=== PATIENT | female | born 1975 | race Caucasian/White ===

== ENCOUNTER 2016-11-17 18:32 | Emergency (ER) | payer OTHER ==
[~2016-11-17 18:32] MED LIST: ALBU17IN INH; ALLO100T PO; BACT800T5 PO; BENA25CA2 PO; CLON0.5T PO; INSUHUMDS SC; INSULADS SC; INSULANT SC; KEPP1TAB2 PO; LAMI25TA PO; ONDA4TAB6 PO; OXYC-517 PO; PROP1TAB29 PO; VITA50003 PO; ZANA4TAB PO; ZOFR20TA PO; ZYRT1TAB PO; ZYVO100T PO
[2016-11-17] MEDS ORDERED: NORCO, ANEXSIA 5/325MG TABLET (HYDROcodone/ACETAMINOPHEN) As Ordered ONE (18:48)
--- NOTE | 2016-11-17 19:05 | REP ---
Clinical: Trauma. Technique: AP, lateral, bilateral oblique views left wrist. Findings: The carpal bones, surrounding osseous structures, soft tissues, and joint spaces are normal. There is no evidence for acute fracture or dislocation. No subcutaneous emphysema or radiodense foreign body. Impression: Normal wrist series. No acute fracture or dislocation Signed by Rudy Oswald MD 11/17/2016 06:56 P
--- NOTE | 2016-11-17 19:29 | EDDOCDS ---
Nurse's Notes [facility] Name: Lolita Meraz Age: 40 yrs Sex: Female : 1975 Arrival Date: 11/17/2016 Time: 18:32 Bed TR8 Private MD: Jp Vanegas MD Diagnosis: Other specified sprain of left wrist Presentation: 11/17 18:35 Presenting complaint: Patient states: fell while running and injured left wrist. moves srm fingers well. Adult Sepsis Screening: The patient does not have new or worsening altered mentation. Patient's respiratory rate is less than 22. Systolic blood pressure is greater than 100. Patient has a qSOFA score of 0- Negative Sepsis Screen. Suicide/Homicide risk assessment- the patient denies having any suicidal and/or homicidal ideations and does not present with any other emotional, behavioral or mental health complaints. Status: Patient is not a counseling services manager or dependent. Transition of care: patient was not received from another setting of care. 18:35 Acuity: KWABENA Level 4 srm 18:35 Method Of Arrival: Walkin/Carried/Asstd [facility] Triage Assessment: 18:37 General: Appears in no apparent distress, Behavior is appropriate for age, cooperative. srm Pain: Pain currently is 7 out of 10 on a pain scale. HIV screening NA for this visit Offered previously. Musculoskeletal: Reports left wrist. 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 Keppra 1,000 mg Oral tab 2 tab every 12 hours - PMHx: blood clot in left upper arm; breast cancer; Crohn's; Diabetes - IDDM: controlled; Ovarian cyst; Pancreatitis; Seizure Disorder; uterine problems; sepsis; - PSHx: Neck fusion; Right shoulder surgery 2011; Arthroscopic bilateral knee; Cholecystectomy; Appendectomy; tumor removed from stomach; - Social history: Smoking status: Patient uses tobacco products, current every day smoker. No barriers to communication noted, The patient speaks fluent Vincentian, Speaks appropriately for age. - Family history: Not pertinent. - : The pt / caregiver states he / she is not on anticoagulants. Home medication list is obtained from the patient. - Exposure Risk Screening:: None identified. Screenin:20 Screening information is obtained from the patient. Fall risk: No risks identified. jo3 Assistance ADL's: requires no assistance with activities of daily living. Abuse/DV Screen: The patient / caregiver reports he/she is: not in a situation that causes fear, pain or injury. Nutritional screening: No deficits noted. Advance Directives: There is no active DNR order. home support is adequate. Assessment: 19:20 General: Appears in no apparent distress, comfortable, Behavior is appropriate for age, jo3 cooperative, pleasant. Neurological: Level of Consciousness is awake, alert, Oriented to person, place, time. Cardiovascular: No deficits noted. Respiratory: Airway is patent Respiratory effort is even, unlabored. Derm: Skin is pink, warm & dry. Musculoskeletal: Splint in place to left forearm. Good CSM noted. Vital Signs: 18:34 BP 151 / 88; Pulse 82; Resp 18; Temp 98.6(T); Pulse Ox 100% on R/A; Weight 110.68 kg; dem1 Height 5 ft. 9 in. (175.26 cm); Pain 7/10; 19:11 BP 148 / 90; Pulse 76; Resp 18; Pulse Ox 100% on R/A; Pain 6/10; jb5 18:34 Body Mass Index 36.03 (110.68 kg, 175.26 cm) [facility] Vitals: 18:34 Log In Time: November 17, 2016 at 18:26. [facility] ED Course: 18:32 Patient visited by Brady Plaza. dem1 18:32 Jp Vanegas is Private Physician. dem1 18:32 Patient moved to Waiting dem1 18:35 Patient moved to Pre RCE dem1 18:36 Triage Initiated srm 18:38 Patient moved to Triage 1 srm 18:39 Brennon Pabon PA is PHCP. mo1 18:39 Burke Perales MD is Attending Physician. mo1 18:44 Patient visited by Brennon Pabon PA. mo1 18:51 Patient moved to TR1 srm 18:51 Patient moved to Radiology srm 18:52 Patient moved to TR1 bar 19:01 Patient moved to PR1 / 25 jb5 19:04 Jp Vanegas is Referral Physician. mo1 19:12 Patient visited by Sierra Zapata PCA. jb5 19:19 Patient moved to TR8 jo3 19:20 The patient / caregiver is instructed regarding the plan of care and ED course. jo3 19:20 No IV's were initiated during this patient's visit. No procedures done that require jo3 assistance. Administered Medications: 18:50 Drug: HYDROcodone-acetaminophen 1 tabs [hydrocodone 5 mg-acetaminophen 325 mg tablet (1 srm tabs)] Route: PO; Order Results: There are currently no results for this order. Outcome: 19:05 Discharge ordered by Provider. mo1 19:20 Discharge Assessment: Patient awake, alert and oriented x 3. No cognitive and/or jo3 functional deficits noted. Patient verbalized understanding of disposition instructions. patient administered narcotics - yes. Pt provided with safe discharge. The following High Risk Discharge criteria are identified: None. Discharged to home ambulatory. Condition: stable Condition: improved. No special radiology studies were completed. Property sent home with patient. 19:29 Patient left the ED. jo3 Signatures: Karla Chaidez RN RN [facility] Recore, [facility] Sierra Villar PCA PCA jb Katrin Paz RN RN Brady Griffin1 Brennon Pabon PA PA mo1 MTDD
--- NOTE | 2016-11-17 19:29 | EDDOCDS ---
Physician Documentation [facility] Name: Lolita Meraz Age: 40 yrs Sex: Female : 1975 Arrival Date: 11/17/2016 Time: 18:32 Bed TR8 Private MD: Jp Vanegas MD Disposition: 11/17/16 19:05 Discharged to Home/Self Care. Impression: Other specified sprain of left wrist. - Condition is Stable. - Discharge Instructions: Wrist Pain, Wrist Splint. - Medication Reconciliation, Local Pharmacy Hours, Work Release Form - 2 day form. - Follow up: Jp Vanegas; When: Call to arrange an appointment; Reason: Recheck today's complaints, Continuance of care. - Problem is new. - Symptoms are unchanged. Historical: - Allergies: Adhesives ("takes my skin off"); BACLOFEN (Wheezing); Codeine Sulfate; Dilantin; Dimetapp Cold-Congestion (Wheezing); Flexeril; iodine topical (Rash); Ketorolac (Wheezing); meloxicam; NSAIDS (Wheezing); PENICILLINS (Wheezing); Relafen (Wheezing); Ultram; Valium ("makes my heart race"); - Home Meds: 1. Keppra 1,000 mg Oral tab 2 tab every 12 hours - PMHx: blood clot in left upper arm; breast cancer; Crohn's; Diabetes - IDDM: controlled; Ovarian cyst; Pancreatitis; Seizure Disorder; uterine problems; sepsis; - PSHx: Neck fusion; Right shoulder surgery 2011; Arthroscopic bilateral knee; Cholecystectomy; Appendectomy; tumor removed from stomach; - Social history: Smoking status: Patient uses tobacco products, current every day smoker. No barriers to communication noted, The patient speaks fluent Cymraes, Speaks appropriately for age. - Family history: Not pertinent. - : The pt / caregiver states he / she is not on anticoagulants. Home medication list is obtained from the patient. - Exposure Risk Screening:: None identified. 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 9 in. (175.26 cm); Pain 7/10; 19:11 BP 148 / 90; Pulse 76; Resp 18; Pulse Ox 100% on R/A; Pain 6/10; jb5 18:34 Body Mass Index 36.03 (110.68 kg, 175.26 cm) dem1 MDM: 18:44 HYDROcodone-acetaminophen 5 mg-325 mg 1 tabs PO once ordered. mo1 18:45 Wrist, Complete Ordered. EDMS 18:59 Financial registration complete. kf3 19:04 Splint ordered. mo1 Administered Medications: 18:50 Drug: HYDROcodone-acetaminophen 1 tabs [hydrocodone 5 mg-acetaminophen 325 mg tablet (1 srm tabs)] Route: PO; Signatures: Dispatcher [employer] EDMS Karla Chaidez RN RN [facility] Katrin Paz RN RN jo3 Curt Morris, Reg Reg kf3 Brennon Pabon PA PA mo1 MTDD
--- NOTE | 2016-11-19 20:30 | EDDOCDS ---
Physician Documentation [facility] Name: Lolita Meraz Age: 40 yrs Sex: Female : 1975 Arrival Date: 11/17/2016 Time: 18:32 Bed TR8 Private MD: Jp Vanegas MD Disposition: 11/17/16 19:05 Discharged to Home/Self Care. Impression: Other specified sprain of left wrist. - Condition is Stable. - Discharge Instructions: Wrist Pain, Wrist Splint. - Medication Reconciliation, Local Pharmacy Hours, Work Release Form - 2 day form. - Follow up: Jp Vanegas; When: Call to arrange an appointment; Reason: Recheck today's complaints, Continuance of care. - Problem is new. - Symptoms are unchanged. Historical: - Allergies: Adhesives ("takes my skin off"); BACLOFEN (Wheezing); Codeine Sulfate; Dilantin; Dimetapp Cold-Congestion (Wheezing); Flexeril; iodine topical (Rash); Ketorolac (Wheezing); meloxicam; NSAIDS (Wheezing); PENICILLINS (Wheezing); Relafen (Wheezing); Ultram; Valium ("makes my heart race"); - Home Meds: 1. Keppra 1,000 mg Oral tab 2 tab every 12 hours - PMHx: blood clot in left upper arm; breast cancer; Crohn's; Diabetes - IDDM: controlled; Ovarian cyst; Pancreatitis; Seizure Disorder; uterine problems; sepsis; - PSHx: Neck fusion; Right shoulder surgery 2011; Arthroscopic bilateral knee; Cholecystectomy; Appendectomy; tumor removed from stomach; - Social history: Smoking status: Patient uses tobacco products, current every day smoker. No barriers to communication noted, The patient speaks fluent Sammarinese, Speaks appropriately for age. - Family history: Not pertinent. - : The pt / caregiver states he / she is not on anticoagulants. Home medication list is obtained from the patient. - Exposure Risk Screening:: None identified. 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 9 in. (175.26 cm); Pain 7/10; 19:11 BP 148 / 90; Pulse 76; Resp 18; Pulse Ox 100% on R/A; Pain 6/10; jb5 18:34 Body Mass Index 36.03 (110.68 kg, 175.26 cm) dem1 MDM: 18:44 HYDROcodone-acetaminophen 5 mg-325 mg 1 tabs PO once ordered. mo1 18:45 Wrist, Complete Ordered. EDMS 18:59 Financial registration complete. kf3 19:04 Splint ordered. mo1 21:01 [facility] Payment Agreement was scanned into [employer] and attached to record. zo 21:12 T-Sheet-- Draft Copy was scanned into [employer] and attached to record. klr Administered Medications: 18:50 Drug: HYDROcodone-acetaminophen 1 tabs [hydrocodone 5 mg-acetaminophen 325 mg tablet (1 srm tabs)] Route: PO; Signatures: Dispatcher [employer] EDMS Karla Chaidez RN RN srm Helmerci, Jennifer, RN RN jo3 Emma Saha Kris, Reg Reg kf3 Brennon Pabon PA PA mo1 Viky Aguirre klr The chart was reviewed and I authenticate all verbal orders and agree with the evaluation and treatment provided.Attachments: 21:01 [facility] Payment Agreement zo 21:12 T-Sheet-- Draft Copy klr Chart Complete MTDD
--- NOTE | 2016-11-19 20:30 | EDDOCDS ---
Nurse's Notes [facility] Name: Lolita Meraz Age: 40 yrs Sex: Female : 1975 Arrival Date: 11/17/2016 Time: 18:32 Bed TR8 Private MD: Jp Vanegas MD Diagnosis: Other specified sprain of left wrist Presentation: 11/17 18:35 Presenting complaint: Patient states: fell while running and injured left wrist. moves srm fingers well. Adult Sepsis Screening: The patient does not have new or worsening altered mentation. Patient's respiratory rate is less than 22. Systolic blood pressure is greater than 100. Patient has a qSOFA score of 0- Negative Sepsis Screen. Suicide/Homicide risk assessment- the patient denies having any suicidal and/or homicidal ideations and does not present with any other emotional, behavioral or mental health complaints. Status: Patient is not a job service consultant or dependent. Transition of care: patient was not received from another setting of care. 18:35 Acuity: KWABENA Level 4 srm 18:35 Method Of Arrival: Walkin/Carried/Asstd [facility] Triage Assessment: 18:37 General: Appears in no apparent distress, Behavior is appropriate for age, cooperative. srm Pain: Pain currently is 7 out of 10 on a pain scale. HIV screening NA for this visit Offered previously. Musculoskeletal: Reports left wrist. 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 Keppra 1,000 mg Oral tab 2 tab every 12 hours - PMHx: blood clot in left upper arm; breast cancer; Crohn's; Diabetes - IDDM: controlled; Ovarian cyst; Pancreatitis; Seizure Disorder; uterine problems; sepsis; - PSHx: Neck fusion; Right shoulder surgery 2011; Arthroscopic bilateral knee; Cholecystectomy; Appendectomy; tumor removed from stomach; - Social history: Smoking status: Patient uses tobacco products, current every day smoker. No barriers to communication noted, The patient speaks fluent [place] Of [place], Speaks appropriately for age. - Family history: Not pertinent. - : The pt / caregiver states he / she is not on anticoagulants. Home medication list is obtained from the patient. - Exposure Risk Screening:: None identified. Screenin:20 Screening information is obtained from the patient. Fall risk: No risks identified. jo3 Assistance ADL's: requires no assistance with activities of daily living. Abuse/DV Screen: The patient / caregiver reports he/she is: not in a situation that causes fear, pain or injury. Nutritional screening: No deficits noted. Advance Directives: There is no active DNR order. home support is adequate. Assessment: 19:20 General: Appears in no apparent distress, comfortable, Behavior is appropriate for age, jo3 cooperative, pleasant. Neurological: Level of Consciousness is awake, alert, Oriented to person, place, time. Cardiovascular: No deficits noted. Respiratory: Airway is patent Respiratory effort is even, unlabored. Derm: Skin is pink, warm & dry. Musculoskeletal: Splint in place to left forearm. Good CSM noted. Vital Signs: 18:34 BP 151 / 88; Pulse 82; Resp 18; Temp 98.6(T); Pulse Ox 100% on R/A; Weight 110.68 kg; dem1 Height 5 ft. 9 in. (175.26 cm); Pain 7/10; 19:11 BP 148 / 90; Pulse 76; Resp 18; Pulse Ox 100% on R/A; Pain 6/10; jb5 18:34 Body Mass Index 36.03 (110.68 kg, 175.26 cm) [facility] Vitals: 18:34 Log In Time: November 17, 2016 at 18:26. [facility] ED Course: 18:32 Patient visited by Brady Plaza. dem1 18:32 Jp Vanegas is Private Physician. dem1 18:32 Patient moved to Waiting dem1 18:35 Patient moved to Pre RCE dem1 18:36 Triage Initiated srm 18:38 Patient moved to Triage 1 srm 18:39 Brennon Pabon PA is PHCP. mo1 18:39 Burke Perales MD is Attending Physician. mo1 18:44 Patient visited by Brennon Pabon PA. mo1 18:51 Patient moved to TR1 srm 18:51 Patient moved to Radiology srm 18:52 Patient moved to TR1 bar 19:01 Patient moved to PR1 / 25 jb5 19:04 Jp Vanegas is Referral Physician. mo1 19:12 Patient visited by Sierra Zapata PCA. jb5 19:19 Patient moved to TR8 jo3 19:20 The patient / caregiver is instructed regarding the plan of care and ED course. jo3 19:20 No IV's were initiated during this patient's visit. No procedures done that require jo3 assistance. 19:51 Wrist, Complete Returned. EDMS 21:01 [facility] Payment Agreement was scanned into [employer] and attached to record. zo 21:12 T-Sheet-- Draft Copy was scanned into [employer] and attached to record. klr Administered Medications: 18:50 Drug: HYDROcodone-acetaminophen 1 tabs [hydrocodone 5 mg-acetaminophen 325 mg tablet (1 srm tabs)] Route: PO; Order Results: Radiology Order: Wrist, Complete Test: Wrist, Complete REASON FOR EXAMINATION: Trauma; Clinical: Trauma.; ; Technique: AP, lateral, bilateral oblique views left wrist.; ; Findings: The carpal bones, surrounding osseous structures, soft tissues, and; joint spaces are normal. There is no evidence for acute fracture or dislocation.; No subcutaneous emphysema or radiodense foreign body.; ; Impression:; Normal wrist series. No acute fracture or dislocation; ; ; Signed by; Rudy Oswald MD 11/17/2016 06:56 P; Outcome: 19:05 Discharge ordered by Provider. mo1 19:20 Discharge Assessment: Patient awake, alert and oriented x 3. No cognitive and/or jo3 functional deficits noted. Patient verbalized understanding of disposition instructions. patient administered narcotics - yes. Pt provided with safe discharge. The following High Risk Discharge criteria are identified: None. Discharged to home ambulatory. Condition: stable Condition: improved. No special radiology studies were completed. Property sent home with patient. 19:29 Patient left the ED. jo3 Signatures: Dispatcher [employer] EDWY Karla Chaidez, RN RN [facility] Recore, [facility] Sierra Zapata PCA PCA jb5 Katrin Paz RN RN jo3 Emma Saha Demeishia dem1 O'Hagan, Michael, PA PA mo1 Viky Aguirre Chart Complete MTDD
--- NOTE | 2016-11-19 20:30 | EDDOCDS ---
Physician Documentation [facility] Name: Lolita Meraz Age: 40 yrs Sex: Female : 1975 Arrival Date: 11/17/2016 Time: 18:32 Bed TR8 Private MD: Jp Vanegas MD Disposition: 11/17/16 19:05 Discharged to Home/Self Care. Impression: Other specified sprain of left wrist. - Condition is Stable. - Discharge Instructions: Wrist Pain, Wrist Splint. - Medication Reconciliation, Local Pharmacy Hours, Work Release Form - 2 day form. - Follow up: Jp Vanegas; When: Call to arrange an appointment; Reason: Recheck today's complaints, Continuance of care. - Problem is new. - Symptoms are unchanged. Historical: - Allergies: Adhesives ("takes my skin off"); BACLOFEN (Wheezing); Codeine Sulfate; Dilantin; Dimetapp Cold-Congestion (Wheezing); Flexeril; iodine topical (Rash); Ketorolac (Wheezing); meloxicam; NSAIDS (Wheezing); PENICILLINS (Wheezing); Relafen (Wheezing); Ultram; Valium ("makes my heart race"); - Home Meds: 1. Keppra 1,000 mg Oral tab 2 tab every 12 hours - PMHx: blood clot in left upper arm; breast cancer; Crohn's; Diabetes - IDDM: controlled; Ovarian cyst; Pancreatitis; Seizure Disorder; uterine problems; sepsis; - PSHx: Neck fusion; Right shoulder surgery 2011; Arthroscopic bilateral knee; Cholecystectomy; Appendectomy; tumor removed from stomach; - Social history: Smoking status: Patient uses tobacco products, current every day smoker. No barriers to communication noted, The patient speaks fluent Nauruan, Speaks appropriately for age. - Family history: Not pertinent. - : The pt / caregiver states he / she is not on anticoagulants. Home medication list is obtained from the patient. - Exposure Risk Screening:: None identified. 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 9 in. (175.26 cm); Pain 7/10; 19:11 BP 148 / 90; Pulse 76; Resp 18; Pulse Ox 100% on R/A; Pain 6/10; jb5 18:34 Body Mass Index 36.03 (110.68 kg, 175.26 cm) dem1 MDM: 18:44 HYDROcodone-acetaminophen 5 mg-325 mg 1 tabs PO once ordered. mo1 18:45 Wrist, Complete Ordered. EDMS 18:59 Financial registration complete. kf3 19:04 Splint ordered. mo1 21:01 [facility] Payment Agreement was scanned into [employer] and attached to record. zo 21:12 T-Sheet-- Draft Copy was scanned into [employer] and attached to record. klr Administered Medications: 18:50 Drug: HYDROcodone-acetaminophen 1 tabs [hydrocodone 5 mg-acetaminophen 325 mg tablet (1 srm tabs)] Route: PO; Signatures: Dispatcher [employer] EDMS Karla Chaidez RN RN srm Helmerci, Jennifer, RN RN jo3 Emma Saha Kris, Reg Reg kf3 Brennon Pabon PA PA mo1 Viky Aguirre klr The chart was reviewed and I authenticate all verbal orders and agree with the evaluation and treatment provided.Attachments: 21:01 [facility] Payment Agreement zo 21:12 T-Sheet-- Draft Copy klr Chart Complete MTDD
== END 2016-11-17 19:29 | disposition home or self-care (01) ==
LOC: M ED 18:32
DX: S63.592A Other specified sprain of left wrist, initial encounter (principal); W01.0XXA Fall on same level from slipping, tripping and stumbling without subsequent striking against object, initial encounter; Y92.410 Unspecified street and highway as the place of occurrence of the external cause; Y93.89 Activity, other specified; Y99.8 Other external cause status; E11.9 Type 2 diabetes mellitus without complications; G40.909 Epilepsy, unspecified, not intractable, without status epilepticus; K50.90 Crohn's disease, unspecified, without complications; Z85.3 Personal history of malignant neoplasm of breast; Z87.19 Personal history of other diseases of the digestive system; N94.9 Unspecified condition associated with female genital organs and menstrual cycle; Z88.0 Allergy status to penicillin; Z88.2 Allergy status to sulfonamides; Z88.5 Allergy status to narcotic agent; Z88.6 Allergy status to analgesic agent; Z88.8 Allergy status to other drugs, medicaments and biological substances; Z91.048 Other nonmedicinal substance allergy status; F17.210 Nicotine dependence, cigarettes, uncomplicated

== ENCOUNTER 2016-12-01 18:17 | Emergency (ER) | payer OTHER ==
[~2016-12-01] VITALS: Ht 175.3 cm; Wt 111.6 kg
[2016-12-01] MEDS ORDERED: ONDANSETRON 4 MG ORAL DISINTEGRATING TAB (S0181) PO ONE (20:30)
[2016-12-01] MEDS ORDERED: COLCHICINE 0.6 MG TAB PO ONE (20:30)
[2016-12-01 20:46] LABS: BASO % 0.3 % (0.0-1.0); EOS # 0.1 K/mm3 (0.0-0.50); EOS % 1.5 % (0.0-3.0); LARGE UNSTAINED CELL # 0.1 K/mm3 (0.0-0.4); LARGE UNSTAINED CELL % 1.2 % (0.0-4.0); LYMPH # 2.4 K/mm3 (1.5-4.5); LYMPH % 30.6 % (24.0-44.0); MEAN CORPUSCULAR HEMOGLOBIN 30.1 pg (27.0-33.0); MEAN CORPUSCULAR HGB CONC 33.9 g/dl (32.0-36.5); MEAN CORPUSCULAR VOLUME 88.7 fl (80.0-96.0); MONO # 0.3 K/mm3 (0.0-0.8); MONO % 4.1 % (0.0-5.0); NEUTROPHILS # 4.9 K/mm3 (1.8-7.7); NEUTROPHILS % 62.2 % (36.0-66.0); PLATELET COUNT, AUTOMATED 232 k/mm3 (150-450); RED CELL DISTRIBUTION WIDTH 12.6 % (11.5-14.5); WHITE BLOOD COUNT 7.9 K/mm3 (4.0-10.0)
[2016-12-01 21:25] LABS: ALBUMIN 3.3 GM/DL (3.2-5.2); ALBUMIN/GLOBULIN RATIO 0.92 (1.00-1.93); ALKALINE PHOSPHATASE 76 U/L (45-117); ALT/SGPT 27 U/L (12-78); ANION GAP 7 MEQ/L (8-16); AST/SGOT 17 U/L (15-37); BILIRUBIN,DIRECT < 0.1 MG/DL (0.0-0.2); BILIRUBIN,TOTAL 0.2 MG/DL (0.2-1.0); BLOOD UREA NITROGEN 9 MG/DL (7-18); CALCIUM LEVEL 8.3 MG/DL (8.5-10.1); CARBON DIOXIDE LEVEL 27 MEQ/L (21-32); CHLORIDE LEVEL 107 MEQ/L (98-107); CREATININE FOR GFR 0.74 MG/DL (0.55-1.02); GLOMERULAR FILTRATION RATE > 60.0 (>60); GLUCOSE, FASTING 109 MG/DL (70-105); POTASSIUM SERUM 4.1 MEQ/L (3.5-5.1); SODIUM LEVEL 141 MEQ/L (136-145); TOTAL PROTEIN 6.9 GM/DL (6.4-8.2); URIC ACID 3.3 MG/DL (2.6-6.0)
--- NOTE | 2016-12-01 23:00 | REPUSA ---
CLINICAL HISTORY: Abdominal pain. TECHNIQUE: Multiple axial, sagittal and coronal CT images were obtained through the abdomen and pelvi s without administration of oral or IV contrast material. COMMENTS: The liver is of uniform attenuation without mass or defect. There is no intra or extrahepatic biliary ductal dilatation. The spleen is normal. The gallbladder is surgically absent. The pancreas is of no rmal contour and attenuation characteristics. There is no evidence of adrenal mass. The kidneys are normal in size, shape and configuration. No renal or ureteral calculi are identified. There is no hydroureter or hydronephrosis. S/p appendectomy. There is no bowel wall thickening. No evidence for small or large bowel obstruction . There is no evidence of abdominal ascites or lymphadenopathy. There is no evidence of intrinsic or extrinsic bladder mass. There is no pelvic ascites or lymphadeno miguel. The uterus and ovaries are unremarkable. Images of the lung bases show no evidence of pleural or parenchymal mass. There are no pleural effusi ons. The bony structures are free of lytic or blastic lesions. IMPRESSION: No acute pathology. Thank you for your kind referral of this patient.
[2016-12-01 23:30] VITALS: BP 127/78
== END 2016-12-01 23:31 | disposition home or self-care (01) ==
LOC: M ED 18:57
DX: R10.9 Unspecified abdominal pain (principal); F17.200 Nicotine dependence, unspecified, uncomplicated; E66.9 Obesity, unspecified; Z79.899 Other long term (current) drug therapy; Z88.1 Allergy status to other antibiotic agents; Z88.8 Allergy status to other drugs, medicaments and biological substances; Z88.5 Allergy status to narcotic agent; Z91.012 Allergy to eggs; Z91.018 Allergy to other foods; Z88.0 Allergy status to penicillin; Z88.6 Allergy status to analgesic agent; Z91.89 Other specified personal risk factors, not elsewhere classified